=== PATIENT | male | born 1985 | race Caucasian/White ===

== ENCOUNTER 2020-10-25 18:08 | Emergency (ER) | payer SELFPAY ==
[~2020-10-25] VITALS: Ht 172.7 cm; Wt 86.2 kg
[2020-10-25] MEDS ORDERED: ONDANSETRON HCL 4 MG ORAL DISINTEGRATING TAB PO ONE (19:00)
[2020-10-25] MEDS ORDERED: ONDANSETRON ODT4 MG PO (19:41)
== END 2020-10-25 20:00 | disposition home or self-care (01) ==
LOC: FSED 19:00
DX: R00.2 Palpitations (principal); F14.10 Cocaine abuse, uncomplicated
CPT/HCPCS: 93005; 99283